=== PATIENT | male | born 1950 | race Caucasian/White ===

== ENCOUNTER 2023-12-04 15:19 | Outpatient (CLI) | payer OTHER ==
[2023-12-04] MEDS ORDERED: CYSTOGRAFIN 300 ML INFUS..BTL UR ONE (15:35)
== END 2023-12-04 18:22 | disposition home or self-care (01) ==
LOC: SRD 15:19
PROVIDERS: ATTEND Urology Pediatric Urology
DX: C61 Malignant neoplasm of prostate (principal)
CPT/HCPCS: 74430; 51600; Q9958

== ENCOUNTER 2024-01-09 08:54 | Outpatient (CLI) | payer OTHER ==
[2024-01-09] MEDS ORDERED: CYSTOGRAFIN 300 ML INFUS..BTL UR ONE (09:08)
== END 2024-01-09 21:12 | disposition home or self-care (01) ==
LOC: SRD 08:54
PROVIDERS: ATTEND Urology Pediatric Urology
DX: C61 Malignant neoplasm of prostate (principal)
CPT/HCPCS: 74430; 51600; Q9958